=== PATIENT | female | born 1965 | race Caucasian/White ===

== ENCOUNTER 2021-05-07 19:15 | Emergency (ER) | payer OTHER ==
--- NOTE | 2021-05-07 19:48 | EDM.PDOC ---
ED HPI GENERAL MEDICAL PROBLEM - General Chief Complaint: Upper Extremity Injury/Pain Stated Complaint: SWOLLEN/SMASHED FINGER Time Seen by Provider: 05/07/21 19:39 Source of Information: Reports: Patient, RN Notes Reviewed History Limitations: Reports: No Limitations - History of Present Illness INITIAL COMMENTS - FREE TEXT/NARRATIVE: 56-year-old female presents emergency department today with complaint of swollen ring finger, she jammed this yesterday and now has some swelling in that finger she is unable to get her rings off she would like them removed. No functional complaints - Related Data Allergies Allergy/AdvReac Type Severity Reaction Status Date / Time acetaminophen [From Vicodin] Allergy Nausea and Verified 05/07/21 19:49 Vomiting hydrocodone [From Vicodin] Allergy Nausea and Verified 05/07/21 19:49 Vomiting Home Meds: Home Meds Escitalopram [Lexapro] 1 tab PO DAILY 05/07/21 [History] Pramipexole [Mirapex] 2 tab PO BEDTIME 05/07/21 [History] Warfarin [Coumadin] 1 tab PO ASDIRECTED 05/07/21 [History] Past Medical History - Past Health History Medical/Surgical History: Denies Medical/Surgical History Social & Family History - Tobacco Use Tobacco Use Status *Q: Never Tobacco User Review of Systems - Review of Systems Review Of Systems: See Below Musculoskeletal: Reports: Hand Pain ED EXAM, GENERAL - Physical Exam Exam: See Below Free Text/Narrative:: Examination of the hand I do appreciate a little bit of edema around the ring finger between the MCP and PIP joint rings are tight but movable radial pulses +2 Exam Limited By: No Limitations General Appearance: Alert, WD/WN, No Apparent Distress Course - Vital Signs Last Recorded V/S: Last Vital Signs Temp 97.1 F 05/07/21 19:36 Pulse 83 05/07/21 19:36 Resp 12 05/07/21 19:36 BP 132/81 05/07/21 19:36 Pulse Ox 93 L 05/07/21 19:36 Departure - Departure Time of Disposition: 20:01 Disposition: Home, Self-Care 01 Condition: Good Clinical Impression: Swelling of left ring finger - Discharge Information Referrals: PCP,None [Primary Care Provider] - Forms: ED Department Discharge Additional Instructions: Follow-up with primary care as needed, call return to the emergency department worsening symptoms Sepsis Event Note (ED) - Focused Exam Vital Signs: Vital Signs Temp Pulse Resp BP Pulse Ox 05/07/21 19:36 97.1 F 83 12 132/81 93 L - Assessment/Plan Plan: Assessment Acuity = acute Site and laterality = removal of rings on ring finger Etiology = secondary trauma Manifestations = none Location of injury = Home Lab values = none Plan attempted the string technique which was unsuccessful, then moved to cutting rings were removed without difficulty This note was dictated using [employer] voice recognition software please call with any questions on syntax or grammar.
== END 2021-05-07 20:33 | disposition home or self-care (01) ==
LOC: JP.ED 19:15
DX: M79.89 Other specified soft tissue disorders (principal); R60.0 Localized edema; Z88.5 Allergy status to narcotic agent; Z79.01 Long term (current) use of anticoagulants
CPT/HCPCS: 99283